=== PATIENT | female | born 1970 | race American Indian/Alaskan Native ===

== ENCOUNTER 2017-06-15 06:15 | Inpatient (IN) | payer BC ==
[2017-06-15 06:29] VITALS: BMI 48.3
--- NOTE | 2017-06-15 07:08 | CP.PCM.HP ---
History of Present Illness - History of Present Illness History of Present Illness: CC: Admission for R knee surgery HPI: 47 y/o female with HTN who presents for R knee replacement. Patient has no c/c otherwise. Denies CP/SOB. Denies f/c/n/v/d; denies dysuria. Patient was seen by PCP on Thursday she states and obtained clearance for surgery at that time. BMP: WNL CBC: WNL EKG: very poor quality EKG, appears to be some nonspec TW changes anterier leads CXR: Mild cardiomegaly, nor CT of R knee: s/p medial comp hemiarthroplasty, stable PCP: Nubia MHx: HTN SHx: R and L knee surgeries in the past Allergies: NKDA Medications: As per med rec Family Hx: Reviewed, no relevant findings Social Hx: Lives with family, no significant EtOH or tobacco Present on Admission - Present on Admission Any Indicators Present on Admission: No Past Patient History - Past Medical History & Family History Past Medical History?: Yes - Past Social History Smoking Status: Never Smoked - CARDIAC Hx Cardiac Disorders: Yes Hx Congestive Heart Failure: No Hx Hypercholesterolemia: No Hx Hypertension: Yes - PULMONARY Hx Respiratory Disorders: No Hx Chronic Obstructive Pulmonary Disease (COPD): No - NEUROLOGICAL Hx Neurological Disorder: No HX Cerebrovascular Accident: No - HEENT Hx HEENT Problems: No - RENAL Hx Chronic Kidney Disease: No Hx Renal Failure: No - ENDOCRINE/METABOLIC Hx Endocrine Disorders: No Hx Diabetes Mellitus Type 1: No Hx Diabetes Mellitus Type 2: No Hx Hypothyroidism: No - HEMATOLOGICAL/ONCOLOGICAL Hx Blood Disorders: No - INTEGUMENTARY Hx Dermatological Problems: No - MUSCULOSKELETAL/RHEUMATOLOGICAL Hx Musculoskeletal Disorders: No Hx Arthritis: No Hx Falls: No Hx Rheumatoid Arthritis: No - GASTROINTESTINAL Hx Gastrointestinal Disorders: No Other/Comment: LACTOSE INTOLERANCE - GENITOURINARY/GYNECOLOGICAL Hx Genitourinary Disorders: No - PSYCHIATRIC Hx Psychophysiologic Disorder: No Hx Emotional Abuse: No Hx Physical Abuse: No - SURGICAL HISTORY Hx Surgeries: Yes Hx Arthroscopy: Yes (BOTH KNEE) Hx Cholecystectomy: Yes (2009) Hx Joint Replacement: Yes (PARTIAL RIGHT KNEE REPLACEMENT 2013) Hx Orthopedic Surgery: Yes (partial right knee-2013,full right knee-2015) Other/Comment: LAPAROSCOPIC GASTRIC BANDING AND REMOVED MAR 2015 - ANESTHESIA Hx Anesthesia: Yes Hx Anesthesia Reactions: No Hx Malignant Hyperthermia: No Has any member of the family had a problem w/ anesthesia?: No Meds Allergies/Adverse Reactions: Allergies Allergy/AdvReac Type Severity Reaction Status Date / Time No Known Allergies Allergy Verified 11/08/15 11:15 Physical Exam - Constitutional Appears: No Acute Distress - Head Exam Head Exam: ATRAUMATIC, NORMOCEPHALIC - Eye Exam Eye Exam: EOMI, PERRL - ENT Exam ENT Exam: Mucous Membranes Moist - Neck Exam Neck exam: Positive for: Full Rom - Respiratory Exam Respiratory Exam: Clear to Auscultation Bilateral, NORMAL BREATHING PATTERN - Cardiovascular Exam Cardiovascular Exam: REGULAR RHYTHM, +S1, +S2 - GI/Abdominal Exam GI & Abdominal Exam: Normal Bowel Sounds, Soft - Extremities Exam Extremities exam: Positive for: full ROM, normal inspection Additional comments: scars b/l knees from prior surgeries - Neurological Exam Neurological exam: Alert, CN II-XII Intact, Oriented x3 - Psychiatric Exam Psychiatric exam: Normal Affect, Normal Mood - Skin Skin Exam: Dry, Warm Results - Vital Signs Recent Vital Signs: Last Vital Signs Temp 97.5 F L 06/15/17 06:50 Pulse 71 06/15/17 06:52 Resp 20 06/15/17 06:50 BP 145/93 H 06/15/17 06:50 Pulse Ox 99 06/15/17 06:50 Assessment & Plan (1) Status post left knee replacement Assessment and Plan: 47 y/o female being admitted for scheduled R knee replacement. 1) Post knee replacement -routine post-op care -pain mgmt 2) HTN -- resume home medications 3) DVT PPx -- start DVT PPx when advised by surgery Status: Acute (2) HTN (hypertension) Status: Acute (3) DVT prophylaxis Status: Acute
[2017-06-15] MEDS ORDERED: Lactated Ringer's 1,000 ML IV ONE ×2 (07:20→19:01)
[2017-06-15] MEDS ORDERED: Absorbable Gelatin Sponge Size 100 ONE (12:50)
[2017-06-15] MEDS ORDERED: ceFAZolin IV 1 gm in Dextrose 2 GM/100 ML BAG IVPB ONE (12:50)
[2017-06-15] MEDS ORDERED: Bacitracin Ointment 30 GM TUBE ONE (12:50)
[2017-06-15] MEDS ORDERED: Bupivacaine 0.5% Inj(30mL) ONE (12:50)
[2017-06-15] MEDS ORDERED: Lidocaine 1% Inj (20ml) ONE (12:50)
[2017-06-15] MEDS ORDERED: SENSORCAINE 0.5% W/EPINEPHRINE 50ML MDV IJ ONE (13:43)
[2017-06-15] MEDS ORDERED: Ropivacaine 0.5% 30ML IV ONE (13:43)
[2017-06-15] MEDS ORDERED: Succinylcholine 200 mg/10 ml Inj IV ONE (13:51)
[2017-06-15] MEDS ORDERED: Rocuronium 10 mg/ml (5 ml) ONE ×3 (13:51→20:36)
[2017-06-15] MEDS ORDERED: Phenylephrine 10 mg/ml Inj ONE (13:51)
[2017-06-15] MEDS ORDERED: Propofol 10 mg/ml Inj (20 ML) ONE (13:51)
[2017-06-15] MEDS ORDERED: Midazolam 2 MG/2 ML VIAL ONE (17:30)
[2017-06-15] MEDS ORDERED: Dexamethasone 4 mg/1 ml ONE (18:54)
[2017-06-15 19:01] LABS: FLUID TYPE SYNOVIAL FLUID
[2017-06-15 19:42] LABS: SYNOVIAL FLUID TOTAL COUNT 100 (0-0)
[2017-06-15] MEDS ORDERED: Neostigmine Methylsulfate 3mg/3ml Syringe IV ONE (22:07)
[2017-06-15] MEDS ORDERED: Neostigmine Methylsulfate 2 MG/2 ML ML IV ONE ×2 (22:07→22:09)
[2017-06-15] MEDS ORDERED: Bacitracin OINT 15GM TOP ONE (22:12)
--- NOTE | 2017-06-15 22:39 | PCM.SURG1 ---
Surgeon's Initial Post Op Note - Surgeon's Notes Surgeon: Eliezer Orchard Manager: RENETTA Ruiz/ 2nd assist Jesus, 1st yr podiatry resident Type of Anesthesia: General Endo, Spinal Anesthesia Administered By: DR Red King Pre-Operative Diagnosis: Painful unicompartmental arthroplasty R knee. transfer arthritis R knee Operative Findings: as above. severe synovitis R knee. posterior capsular contracture. lateral patella contracture Post-Operative Diagnosis: as above Operation Performed: Revision L TKR. arthrotomy/synovectomy. posterior capuslar release. lateral patella release. removal unicompartmental compoinents. computer navigation Specimen/Specimens Removed: cartilage/synovium/bone Estimated Blood Loss: EBL {In ML}: 200 Date of Surgery/Procedure: 06/15/17 Time of Surgery/Procedure: 18:30 (time in room 1727)
[2017-06-15] MEDS: HYDROmorphone 0.5 mg/0.5 ml ISec IVP PRN ×5 (22:45→23:50)
[2017-06-15] MEDS ORDERED: HYDROmorphone 0.5 mg/0.5 ml ISec ONE (22:49)
--- NOTE | 2017-06-15 22:56 | PCM.ANESB3 ---
Femoral Nerve Block - Femoral Nerve Block Date of Procedure: 06/15/17 Anesthesiologist: Fernando Pre-Procedure Diagnosis: Right knee OA Post-Procedure Diagnosis: Same Procedure Performed: Femoral Nerve Block Right - Procedure Femoral Nerve Block: The procedure was explained to the patient that it is for the post-operative pain management. Consent was obtained after a thorough discussion with the patient regarding the benefits and possible complications of local anesthetic block of the femoral nerve at the inguinal crease area. The patient was brought to the operating room and standard monitors were applied. Time-out was held with the circulating nurse to confirm the correct surgery and the appropriate block. Unde general anesthesia, patient was placed in supine position with fully extended lower extremities and the ____right____ groin exposed. The femoral artery was then carefully palpated. The ultrasound transducer was then applied to this area in the transverse plane and the femoral nerve was visualized lateral to the femoral artery and underneath the fascia iliaca. After thorough identification, the inguinal crease area was prepped with Chloraprep. At this point, a #22 gauge Stimuplex 4-inch needle was inserted immediately lateral to the femoral artery pulse at the inguinal crease and advanced perpendicularly. The needle was inserted to the ultrasound transducer in-plane towards the femoral nerve in a [id number] direction. Needle advancement was performed carefully under direct ultrasound visualization. Nerve stimulator was used and twitch of the quadriceps muscle was obtained at current of __0.4___ MA. After negative aspiration, _2____cc of _0.5____% ropivicaine ____was injected and this was followed with _13 cc of ___0.5____ % __ ropivicaine and 15cc 0.25% bupivicaine with epinephrine . Under ultrasound guidance the local anesthetics were observed spreading below fascia iliaca and around the femoral nerve. The needle was removed intact. The patient tolerated the femoral nerve block well with stable vital signs and was prepared for subsequent surgery.
--- NOTE | 2017-06-15 22:59 | PCM.ANESB2 ---
Popliteal Nerve Block - Popliteal Nerve Block Date of Procedure: 06/15/17 Anesthesiologist: Fernando Pre-Procedure Diagnosis: Right knee OA Post-Procedure Diagnosis: Same Procedure Performed: Popliteal Nerve Block Right - Procedure Popliteal Nerve Block: This procedure was explained to the patient that it is for post-operative pain management. Consent was obtained after a thorough discussion with the patient regarding the benefits and possible complications of local anesthetic block of the sciatic nerve at the popliteal level. The patient was brought to the operating room and standard monitors are applied. Time-out was held with the circulating nurse to confirm the correct surgery and the appropriate block. Under general anesthesia, patient's operative leg was gently raised and supported and the groove in between the biceps femoris and vastus lateralis muscles was carefully palpated. The skin approximately 8cm above the popliteal crease was then marked. The ultrasound transducer was then applied to the posterior thigh approximately 8cm above the popliteal crease in the transverse plane and the sciatic nerve before its division was visualized lateral to the popliteal artery and in between the bicep femoris and semimembranosus/ semitendinosus muscles. After identification, the lateral portion of the thigh was prepped withChloraprep. At this point, a # 21 gauge Stimuplex insulated 4 inch needle was inserted into pre-marked area and advanced in a perpendicular direction. The needle was inserted above the ultrasound transducer in-plane towards the sciatic nerve in a [id number] direction. Needle advancement was performed carefully under direct ultrasound visualization. Nerve stimulator was used and dorsiflexion of the __right___ foot was elicited at a current of ___0.4__ MA. After repeated negative aspiration, __2___cc of _0.5____ % _ropivicaine was injected and this was flowed with __13____ cc of __0.5____% __ropivicaine and 15 cc 0.25% bupivicaine with epinephrine . Under ultrasound guidance the local anesthetics were observed surrounding sciatic nerve . The needle was removed intact. The patient tolerated the popliteal nerve block well with stable vital signs and was subsequently prepared for the surgery.
[2017-06-15] MEDS ORDERED: Lactated Ringer's 1,000 ML IV SCH (23:00)
[2017-06-16] MEDS: ceFAZolin 1 GM in Sodium Chloride 0.9% 100 ML IVPB SCH ×2 (01:30→08:47)
[2017-06-16 06:29] LABS: BASO % 0.1 % (0.0-2.0); EOS % 0.1 % (0.0-4.0); HEMATOCRIT 32.6 % (34.0-47.0); LYMPH # 0.7 K/uL (1.0-4.3); LYMPH % 4.4 % (20.0-40.0); MEAN CELL VOLUME 83.6 fl (81.0-99.0); MEAN CORPUSCULAR HEMOGLOBIN 26.9 pg (27.0-31.0); MEAN CORPUSCULAR HGB CONC 32.1 g/dL (33.0-37.0); MEAN PLATELET VOLUME 7.4 fl (7.2-11.7); MONO # 0.7 K/uL (0.0-0.8); MONO % 4.7 % (0.0-10.0); NEUT # 14.5 K/uL (1.8-7.0); NEUT % 90.7 % (50.0-75.0); PLATELET COUNT 329 K/uL (130-400); RED CELL DISTRIBUTION WIDTH 15.1 % (11.5-14.5)
[2017-06-16 06:30] LABS: BLOOD UREA NITROGEN 10 mg/dl (7-17); CALCIUM 7.8 mg/dL (8.4-10.2); CARBON DIOXIDE 24 mmol/L (22-30); CHLORIDE 105 mmol/L (98-107); GFR AFRICAN-AMERICAN > 60; GLUCOSE,RANDOM 136 mg/dL (65-105); POTASSIUM 4.6 MMOL/L (3.6-5.0); SODIUM 141 mmol/l (132-148)
[2017-06-16 07:27] LABS: PARTIAL THROMBOPLASTIN TIME 28.5 Seconds (25.6-37.1)
--- NOTE | 2017-06-16 07:54 | CP.PCM.PN ---
Subjective - Date & Time of Evaluation Date of Evaluation: 06/16/17 Time of Evaluation: 07:53 - Subjective Subjective: patient seen and examined at bedside for her right total knee revision. She is hemodynamically stable in no acute distress. There are no acute events overnight. Patient denies any chest pain or shortness of breath. Pain is well- controlled. Patient to be evaluated by physical therapy today. Objective - Vital Signs/Intake and Output Vital Signs (last 24 hours): Temp Pulse Resp BP Pulse Ox 98.2 F 88 20 94/63 L 98 06/16/17 07:46 06/16/17 07:46 06/16/17 07:46 06/16/17 07:46 06/16/17 07:46 Physical exam: Constitutional- cooperative, awake, alert. Head- NCAT, PERRL Eye- PERRL, normal accommodation ENT- normal exam, MMM. Neck- normal inspection, supple, no JVD Respiratory- CTAB, no wheezes rales rhonchi Cardiovascular- RRR, +S1, +S2 no MRG GI/Abdominal- normal bowel sounds, soft, no mass, no hsm Skin- warm, dry Extremities Exam- normal capillary refill, normal inspectiondressings in place Neurological Exam- alert, awake oriented Psych- normal mood, normal affect Intake and Output: 06/16/17 06/16/17 06:59 18:59 Intake Total 1475 Output Total 325 Balance 1150 - Medications Medications: Current Medications Amlodipine Besylate (Norvasc) 5 mg PO DAILY JERRY Docusate Sodium (Colace) 100 mg PO BID JERRY Enoxaparin Sodium (Lovenox) 40 mg SC DAILY JERRY PRN Reason: Protocol Ferrous Sulfate (Feosol) 325 mg PO BID JERRY Hydralazine HCl (Apresoline) 10 mg IV ONCE PRN PRN Reason: Systolic Blood Pressure Hydromorphone HCl (Dilaudid 0.2 Mg/Ml [employer] Teacher) 0 mg IV PRN PRN; Protocol PRN Reason: Pain, moderate (4-7) Last Admin: 06/16/17 00:06 Dose: 6 mg Cefazolin Sodium 1 gm/ Sodium (Chloride) 100 mls @ 100 mls/hr IVPB Q8 JERRY PRN Reason: Protocol Stop: 06/16/17 09:59 Last Admin: 06/16/17 01:30 Dose: 100 mls/hr Lactated Ringer's (Lactated Ringer's) 1,000 mls @ 100 mls/hr IV .Q10H JERRY Last Admin: 06/15/17 22:45 Dose: 150 mls Ondansetron HCl (Zofran Inj) 4 mg IVP Q8 PRN PRN Reason: Nausea/Vomiting - Labs Labs: 06/16/17 05:10 06/16/17 05:10 PT 12.7 Seconds (9.8-13.1) 06/16/17 05:10 INR 1.1 (0.9-1.2) 06/16/17 05:10 APTT 28.5 Seconds (25.6-37.1) 06/16/17 05:10 Assessment and Plan - Assessment and Plan (Free Text) Plan: 47 y/o female being admitted for scheduled R knee replacement. 1) Post knee replacement patient received Ancef postoperatively incentive spirometer pain control DVT prophylaxis per Orthopedic surgery patient to be evaluated by physical therapy and occupational therapy Orthopedic surgery Dr. Avalos 2) HTN continue amlodipine 3) DVT PPx -- start DVT PPx when advised by surgery
--- NOTE | 2017-06-16 09:28 | CP.PCM.CON ---
History of Present Illness - History of Present Illness History of Present Illness: THE PATIENT IS A 47 YEAR OLD FEMALE WHO HAD A REVISION OF A RIGHT TKR YESTERDAY. SHE HAD BILATERAL KNEE SURGERY IN THE PAST. SHE ALSO HAS A HISTORY OF HYPERTENSION, OA AND SHE IS OVERWEIGHT AN HAD A LAP-BAND PROCEDURE THAT WAS REMOVED. DR SHIN ASKED CARDIOLOGY TO SEE AND FOLLOW THE PATIENT POST-OP FOR HER HYPERTENSION FOR WHICH SHE TAKES AMLODIPINE 5 MGS PO DAILY. SHE DENIES ANY HISTORY OF CAD, CHEST PAIN, DIABETES OR HYPERLIPIDEMIA. Past Patient History - Past Medical History & Family History Past Medical History?: Yes - Past Social History Smoking Status: Never Smoked - CARDIAC Hx Cardiac Disorders: Yes Hx Congestive Heart Failure: No Hx Hypercholesterolemia: No Hx Hypertension: Yes - PULMONARY Hx Respiratory Disorders: No Hx Chronic Obstructive Pulmonary Disease (COPD): No - NEUROLOGICAL Hx Neurological Disorder: No HX Cerebrovascular Accident: No - HEENT Hx HEENT Problems: No - RENAL Hx Chronic Kidney Disease: No Hx Renal Failure: No - ENDOCRINE/METABOLIC Hx Endocrine Disorders: No Hx Diabetes Mellitus Type 1: No Hx Diabetes Mellitus Type 2: No Hx Hypothyroidism: No - HEMATOLOGICAL/ONCOLOGICAL Hx Blood Disorders: No - INTEGUMENTARY Hx Dermatological Problems: No - MUSCULOSKELETAL/RHEUMATOLOGICAL Hx Musculoskeletal Disorders: No Hx Arthritis: No Hx Falls: No Hx Rheumatoid Arthritis: No - GASTROINTESTINAL Hx Gastrointestinal Disorders: No Other/Comment: LACTOSE INTOLERANCE - GENITOURINARY/GYNECOLOGICAL Hx Genitourinary Disorders: No - PSYCHIATRIC Hx Psychophysiologic Disorder: No Hx Emotional Abuse: No Hx Physical Abuse: No - SURGICAL HISTORY Hx Surgeries: Yes Hx Arthroscopy: Yes (BOTH KNEE) Hx Cholecystectomy: Yes (2009) Hx Joint Replacement: Yes (PARTIAL RIGHT KNEE REPLACEMENT 2013) Hx Orthopedic Surgery: Yes (partial right knee-2013,full right knee-2015) Other/Comment: LAPAROSCOPIC GASTRIC BANDING AND REMOVED MAR 2015 - ANESTHESIA Hx Anesthesia: Yes Hx Anesthesia Reactions: No Hx Malignant Hyperthermia: No Has any member of the family had a problem w/ anesthesia?: No Meds Home Medications: Home Medication List Medication Instructions Recorded Confirmed Type Enoxaparin [Lovenox] 40 mg SC DAILY syr 06/17/17 Rx oxyCODONE/Acetaminophen [Percocet 1 tab PO Q4 PRN tab 06/17/17 Rx 5/325 mg Tab] Allergies/Adverse Reactions: Allergies Allergy/AdvReac Type Severity Reaction Status Date / Time No Known Allergies Allergy Verified 11/08/15 11:15 - Medications Medications: Current Medications Amlodipine Besylate (Norvasc) 5 mg PO DAILY [facility] Last Admin: 06/16/17 08:50 Dose: Not Given Docusate Sodium (Colace) 100 mg PO BID [facility] Last Admin: 06/16/17 08:49 Dose: 100 mg Enoxaparin Sodium (Lovenox) 40 mg SC DAILY [facility] PRN Reason: Protocol Ferrous Sulfate (Feosol) 325 mg PO BID [facility] Last Admin: 06/16/17 08:50 Dose: 325 mg Hydralazine HCl (Apresoline) 10 mg IV ONCE PRN PRN Reason: Systolic Blood Pressure Hydromorphone HCl (Dilaudid 0.2 Mg/Ml Derrick Follower) 0 mg IV PRN PRN; Protocol PRN Reason: Pain, moderate (4-7) Last Admin: 06/16/17 00:06 Dose: 6 mg Cefazolin Sodium 1 gm/ Sodium (Chloride) 100 mls @ 100 mls/hr IVPB Q8 [facility] PRN Reason: Protocol Stop: 06/16/17 09:59 Last Admin: 06/16/17 08:47 Dose: 100 mls/hr Lactated Ringer's (Lactated Ringer's) 1,000 mls @ 100 mls/hr IV .Q10H [facility] Last Admin: 06/15/17 22:45 Dose: 150 mls Ondansetron HCl (Zofran Inj) 4 mg IVP Q8 PRN PRN Reason: Nausea/Vomiting Physical Exam - Respiratory Exam Respiratory Exam: Clear to Auscultation Bilateral - Cardiovascular Exam Cardiovascular Exam: REGULAR RHYTHM, +S1, +S2 - Additional Findings Additional findings: PAT EKG NSR CXR MILD CARDIOMEGALY BP WAS HIGH LAST NIGHT AND SHE RECEIVED 10 MGS OF IV HYDRALAZINE Results - Vital Signs Recent Vital Signs: Last Vital Signs Temp 98.2 F 06/16/17 07:46 Pulse 88 06/16/17 07:46 Resp 20 06/16/17 07:46 BP 94/63 L 06/16/17 07:46 Pulse Ox 98 06/16/17 07:46 - Labs Result Diagrams: 06/16/17 05:10 06/16/17 05:10 Labs: Laboratory Results - last 24 hr 06/15/17 06/15/17 06/16/17 08:00 18:55 05:10 WBC 16.0 H RBC 3.90 Hgb 10.5 L Hct 32.6 L MCV 83.6 MCH 26.9 L MCHC 32.1 L RDW 15.1 H Plt Count 329 MPV 7.4 Neut % (Auto) 90.7 H Lymph % (Auto) 4.4 L [place] % (Auto) 4.7 Eos % (Auto) 0.1 Baso % (Auto) 0.1 Neut # 14.5 H Lymph # 0.7 L [place] # 0.7 Eos # 0.0 Baso # 0.0 PT INR APTT Sodium Potassium Chloride Carbon Dioxide Anion Gap BUN Creatinine Est GFR ( Amer) Est GFR (Non-Af Amer) Random Glucose Calcium Fluid Type Synovial fluid Synovial WBC 160.0 H Synovial RBC 20939.0 H Synovial Neutrophils 34.0 H Synovial Lymphocytes 61.0 H Synov Monos/Macrophage 5 H Blood Type A POSITIVE Antibody Screen Negative Crossmatch See Detail BBK History Checked Patient has bt 06/16/17 06/16/17 05:10 05:10 WBC RBC Hgb Hct MCV MCH MCHC RDW Plt Count MPV Neut % (Auto) Lymph % (Auto) [place] % (Auto) Eos % (Auto) Baso % (Auto) Neut # Lymph # [place] # Eos # Baso # PT 12.7 INR 1.1 APTT 28.5 Sodium 141 Potassium 4.6 Chloride 105 Carbon Dioxide 24 Anion Gap 16 BUN 10 Creatinine 0.8 Est GFR ( Amer) > 60 Est GFR (Non-Af Amer) > 60 Random Glucose 136 H Calcium 7.8 L Fluid Type Synovial WBC Synovial RBC Synovial Neutrophils Synovial Lymphocytes Synov Monos/Macrophage Blood Type Antibody Screen Crossmatch BBK History Checked Assessment & Plan - Assessment and Plan (Free Text) Assessment: S/P REVISION OF RIGHT TKR HYPERTENSION OVERWEIGHT Plan: WILL REPEAT EKG PAT EKG WAS OF POOR QUALITY WILL DO ECHO IN AM TO ASSESS HEART SIZE THERE WAS MILD CARDIOMEGALY REPORTED ON CXR MONITOR BP-AMLODIPINE HELD THIS AM THE BLOOD PRESSURE WAS ON THE LOW SIDE PATIENT ON LOVENOX
[2017-06-16] MEDS: Enoxaparin 40 mg Syringe SC SCH (09:36)
--- NOTE | 2017-06-16 11:59 | RAD ---
PROCEDURE: Right Knee Radiographs. HISTORY: s/p Revision R TKR COMPARISON: None. FINDINGS: BONES: PA seen to be status post total knee replacement with hardware in adequate position at the distal femur and proximal tibia. 6 numerous skin sonya are identified anteriorly with emphysematous soft tissue changes identified antral laterally to the right. A surgical drain is also noted within local soft tissues as well. No interval fracture or dislocation appreciable grossly. JOINTS: Normal. No osteoarthritis. JOINT EFFUSION: None. OTHER FINDINGS: None. IMPRESSION: Status post right total knee replacement with limited postop changes noted as discussed above.
[2017-06-16] MEDS ORDERED: HYDROmorphone 1 mg/ml ISec IVP PRN (12:00)
[2017-06-16 12:02] LABS: NEUTROPHIL 91 % (42-75); TOTAL CELLS COUNTED 100
[2017-06-16 12:03] LABS: LARGE PLATELETS PRESENT
--- NOTE | 2017-06-16 14:17 | PQF GENQUE ---
Dr. Brian Diallo, In agreement with BMI:48.4 5ft 1in 256 lb: listed in the EMR? if yes: please add the BMI to your next progress note OR: Disagree OR:Other explanation of clinical finding Cardiology consult: diagnoses include: Overweight This form is a permanent part of the medical record Clarification of your documentation is requested to better reflect the severity of illness and intensity of treatment of your patient. Indicators present [] Specify: [] [] Specify: [] [] Specify: [] [] Specify: [] Location in the medical record that reflects the above clinical findings: [] Treatment Provided: [] PHYSICIAN'S RESPONSE Based on your medical judgment of the clinical indicators outlined above please clarify the following: [] Practitioner response [] If unable to determine, please check the box, sign and date. Present On Admission (POA) Indicator: [] Present at the time of admission [] Not present at the time of admission [] Clinically Undetermined In responding to this query, please exercise your independent professional judgment. The fact that a question is asked does not imply that any particular answer is desired or expected. Thank you for your clarification on this documentation. If you have any questions please call. * Thank you, Kaye King RN ext. #[phone] MTDD
[2017-06-16] MEDS: Oxycodone/Acetaminophen 5/325 mg Tab PO PRN ×2 (16:13→23:19)
[2017-06-17 07:54] VITALS: BP 143/84; RESP 20; TEMP 99.1; O2SAT 94
[2017-06-17] MEDS: Enoxaparin 40 mg Syringe SC SCH (08:07)
[2017-06-17 08:10] VITALS: PULSE 100
[2017-06-17] MEDS: Oxycodone/Acetaminophen 5/325 mg Tab PO PRN (08:16)
--- NOTE | 2017-06-17 09:22 | OP ---
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 PROCEDURES: 1. Revision right total knee replacement. 2. Primary repair and reconstruction of patellar ligament. 3. Posterior capsular release. 4. Lateral patellar retinacular release. 5. Anterior and posterior synovectomy. 6. Computer navigation. SURGEON: Juan Daniel Martins MD. FITTING ROOM SUPERVISOR: Cora Guardado, certified registered nursing personal care assistant. SECOND COLD STORAGE SUPERVISOR: Jesus Godinez, first year podiatry resident. DRAINS: One Hemovac drain. COMPLICATIONS: None. TYPE OF ANESTHESIA: Spinal, general and regional anesthesia. ANESTHESIA ADMINISTERED BY: Rde King MD. ESTIMATED BLOOD LOSS: 200 mL. OPERATIVE INDICATIONS: Ksenia Lyles is a morbidly obese female who underwent excellent unicompartmental replacement approximately 7 years ago of the right knee. The patient has undergone weight gain. With excellent position of the unicompartmental replacement, the patient has developed severe transfer arthritis. Pros, cons, risks, and benefits of surgical approach were discussed. The patient has failed conservative management and is unable to lose weight. She wished the surgery to be accomplished, can no longer withstand the pain. OPERATIVE PROCEDURE: After having obtained informed consent, after having identified the side, site and procedure and critical pause/time-out, after the satisfactory induction of the anesthetic, the patient identified as Ksenia Lyles in the supine position with all bony prominences well padded. The right lower extremity was prepped and free draped in the usual fashion for lower extremity surgery. Tourniquet had been applied, but is not yet inflated. After exsanguinating the limb using a 6-inch Esmarch bandage and the tourniquet, which had been applied was inflated to 350 mmHg. A straight midline approach is made, initial incision is described. The skin incision is extended 3 fingerbreadths proximally and 3 fingerbreadths distally. An ellipse of skin and subcutaneous tissue and muscle is excised from the wound. Medial and lateral flaps are deep, are elevated to expose the retinaculum. There is found to be a lateral patellar retinacular contracture with severe destruction of the patella. Medial arthrotomy is accomplished. The patella was everted. A portion of the patellar ligament is elevated. Dissection is carried around posteromedially to the direct head of the semimembranosus tendon. A portion of the pes is released. The tibia is dislocated anteriorly. Lateral meniscectomy is accomplished. Anterior and posterior cruciate ligaments were excised. The tibia is dislocated anteriorly and the initial osteotomy of the arthroplasty is accomplished on the tibial side. Before this is accomplished, the interface between the femoral component and tibial component is identified. This interface between the metal and the cement is developed using the oscillating saw. The oscillating saw is used to develop the interface between the cement and the metal. Great care was taken not to compromise the bone. The polyethylene is removed. The tibial plate is removed after great care was taken to define the plane between the component and the cement. At this point in time, there is minimal cement, which is removed medially. The same thing is accomplished on the femoral side using the hand-driven oscillating saw. The interface between the metal and the cement is developed. Femoral component is removed. Attention is now turned to the tibia. The anterior support for the OrthAlign accelerometer device is affixed. At this point in time, the varus-valgus is set to 0 degrees, posterior slope to 3.5 degrees, and the posterior slope of the tibial cut is 3.5 degrees. The cut is set to 2 mm below the previous component removal. This having been accomplished using the oscillating saw, the component having been carefully removed, the initial osteotomy of the arthroplasty is accomplished on the tibial side. This having been accomplished, the cut is found to be excellent. Attention is turned to the femur. The navigational pin is placed just above the intercondylar notch. The accelerometer and sensor is placed and affixed to the femoral distal cutting guide. This having been accomplished, the accelerometer is used to align the cut at 0 degrees of varus-valgus and 0.5 degrees of flexion of the femoral component to avoid notching. This having been accomplished, the distal cut is set to 9 mm, the girth of the component, the distal cut is accomplished and found to be acceptable. Minimal bone loss had been achieved in removing the femoral component. This having been accomplished, a 4-in-1 block is placed and is found to be a size 3 femoral component. This is affixed, 4-in-1 block is affixed across the epicondylar axis. Anterior and posterior osteotomies were accomplished. Chamfer cuts were accomplished. The laminar cook chef was placed. Posterior capsule is elevated and released. Lateral meniscectomy is accomplished. Portion of the popliteus tendon is removed. An aggressive posterior capsular release is accomplished. Because of the patient's contractures, a lateral patellar retinacular release had been accomplished to achieve eversion of the patella. At this point in time, attention is turned to the tibia, guidance to rotation of the lateral aspect of the tibial condyle, mid malleolar access, medial third of the tibial tuberosity. The proximal tibia having been prepared, chamfer cuts were placed on the femur. Femoral lugs were reamed. Trialing is accomplished with a 17 mm sphere medial pivot component. The fit is found to be excellent. There is no evidence of instability. Attention is turned to the patella. The patella girth is found to be approximately 28 mm. Freehand patella osteotomy is accomplished for #2 patellar component. The tourniquet is deflated and hemostasis controlled with the Aquamantys. Trialing is accomplished with the #2 tibial component, #3 femoral component, 17 mm sphere insert, and the #2 patella component. Flexion extension gap is found to be excellent in balance. The wound is thoroughly irrigated and at this point in time, the #3 cemented femoral component, #2 cemented tibial tray, 17 mm polyethylene with the screw, the #2 patella. The wound was thoroughly irrigated. Hemostasis is controlled. The tourniquet having been deflated, hemostasis controlled with the Aquamantys. At this point in time, repair of the patellar ligament is accomplished with stabilization. There was not complete avulsion of the patellar ligament but stabilization and primary repair and reconstruction is accomplished using a suture anchor. Closure was with #1 FiberWire, followed by #2 Quill, 2-0 Vicryl, and sonya for skin over an 8-inch suction Hemovac drain. Flexion extension balance, patella balance is excellent. Tyson Marquez compression dressing and knee immobilizer was applied. It should be noted that computer navigation was essential after the completion of this operation and current nursing personal care assistant, Cora Guardado, was essential for the accomplishment of the operative goals in terms of alignment, structuring, and placement of the components. This having been accomplished, Tyson Marquez compression dressing and knee immobilizers was applied. Postoperative x-rays revealed acceptable position of the construct. Juan Daniel Martins MD
--- NOTE | 2017-06-17 11:50 | CARD ---
APPROVED REPORT EKG Measurement Heart [id number] [id number] <Conclusion> Normal sinus rhythm with sinus arrhythmia Normal ECG
--- NOTE | 2017-06-17 12:11 | CARD ---
APPROVED REPORT EKG Measurement Heart [id number] [place] [id number] <Conclusion> Normal sinus rhythm Normal ECG
--- NOTE | 2017-06-17 14:31 | CP.PCM.PN ---
Subjective - Date & Time of Evaluation Date of Evaluation: 06/17/17 Time of Evaluation: 14:00 - Subjective Subjective: NO CHEST PAIN OR SOB Objective - Vital Signs/Intake and Output Vital Signs (last 24 hours): Temp Pulse Resp BP Pulse Ox 99.1 F 100 H 20 143/84 94 L 06/17/17 07:53 06/17/17 08:08 06/17/17 07:53 06/17/17 08:08 06/17/17 07:53 - Medications Medications: Current Medications Amlodipine Besylate (Norvasc) 5 mg PO DAILY [facility] Last Admin: 06/17/17 08:08 Dose: 5 mg Docusate Sodium (Colace) 100 mg PO BID [facility] Last Admin: 06/17/17 08:07 Dose: 100 mg Enoxaparin Sodium (Lovenox) 40 mg SC DAILY [facility] PRN Reason: Protocol Last Admin: 06/17/17 08:07 Dose: 40 mg Ferrous Sulfate (Feosol) 325 mg PO BID [facility] Last Admin: 06/17/17 08:08 Dose: 325 mg Hydralazine HCl (Apresoline) 10 mg IV ONCE PRN PRN Reason: Systolic Blood Pressure Hydromorphone HCl (Dilaudid) 1 mg IVP Q4 PRN PRN Reason: Pain, severe (8-10) Last Admin: 06/17/17 06:26 Dose: 1 mg Lactated Ringer's (Lactated Ringer's) 1,000 mls @ 100 mls/hr IV .Q10H [facility] Last Admin: 06/15/17 22:45 Dose: 150 mls Ondansetron HCl (Zofran Inj) 4 mg IVP Q8 PRN PRN Reason: Nausea/Vomiting Oxycodone/Acetaminophen (Percocet 5/325 Mg Tab) 1 tab PO Q4 PRN PRN Reason: Pain, moderate (4-7) Stop: 06/19/17 12:02 Last Admin: 06/17/17 08:16 Dose: 1 tab - Labs Labs: 06/16/17 05:10 06/16/17 05:10 PT 12.7 Seconds (9.8-13.1) 06/16/17 05:10 INR 1.1 (0.9-1.2) 06/16/17 05:10 APTT 28.5 Seconds (25.6-37.1) 06/16/17 05:10 - Respiratory Exam Respiratory Exam: Clear to Ausculation Bilateral - Cardiovascular Exam Cardiovascular Exam: REGULAR RHYTHM, +S1, +S2 - Additional Findings Additional findings: S/P REVISION OR RIGHT TKR HYPERTENSION Assessment and Plan - Assessment and Plan (Free Text) Plan: CONTINUE AMLODIPINE AND LOVENOX THE PATIENT CHANGED HER MIND ON AN ECHOCARDIOGRAM-SHE WANTS TO HAVE HER LMD DO THE TEST AN OUT PATIENT FOR POSSIBLE DISCHARGE TO REHAB TODAY
--- NOTE | 2017-06-17 15:57 | CP.PCM.DIS ---
Provider - Provider Date of Admission: 06/15/17 23:46 Attending physician: Deric Mahoney Primary care physician: Juan Daniel Martins III, MD Consults: ortho consult anesthesis cardiology consult Time Spent in preparation of Discharge (in minutes): 10 Hospital Course - Lab Results Lab Results: Micro Results 06/15/17 19:00 Knee - Right Gram Stain - Final 06/15/17 19:00 Knee - Right Anaerobic Culture - Final NO ANAEROBES ISOLATED. 06/15/17 19:00 Knee - Right Wound Culture - Preliminary No growth. 06/15/17 19:00 Knee - Right Anaerobic Culture - Final NO ANAEROBES ISOLATED. 06/15/17 19:00 Knee - Right Gram Stain - Final 06/15/17 19:00 Knee - Right Wound Culture - Preliminary No growth. 06/15/17 19:00 Knee - Right Gram Stain - Final 06/15/17 19:00 Knee - Right Wound Culture - Preliminary No growth. 06/15/17 19:00 Knee - Right Gram Stain - Final 06/15/17 19:00 Knee - Right Wound Culture - Preliminary No growth. 06/15/17 19:00 Knee - Right Gram Stain - Final 06/15/17 19:00 Knee - Right Wound Culture - Preliminary No growth. 06/15/17 19:00 Knee - Right Gram Stain - Final 06/15/17 19:00 Knee - Right Wound Culture - Preliminary No growth. 06/15/17 19:00 Knee - Right Gram Stain - Final 06/15/17 19:00 Knee - Right Wound Culture - Preliminary No growth. 06/15/17 19:00 Knee - Right Gram Stain - Final 06/15/17 19:00 Knee - Right Wound Culture - Preliminary No growth. 06/15/17 19:00 Synovial Fluid Gram Stain - Final 06/15/17 19:00 Synovial Fluid Body Fluid Culture - Preliminary NO GROWTH AFTER 2 DAYS 06/15/17 19:00 Other: Please Indicate Mycobacterial Culture - Preliminary Most Recent Lab Values WBC 16.0 K/uL (4.8-10.8) H 06/16/17 05:10 RBC 3.90 Mil/uL (3.80-5.20) 06/16/17 05:10 Hgb 10.5 g/dL (12.0-16.0) L 06/16/17 05:10 Hct 32.6 % (34.0-47.0) L 06/16/17 05:10 MCV 83.6 fl (81.0-99.0) 06/16/17 05:10 MCH 26.9 pg (27.0-31.0) L 06/16/17 05:10 MCHC 32.1 g/dL (33.0-37.0) L 06/16/17 05:10 RDW 15.1 % (11.5-14.5) H 06/16/17 05:10 Plt Count 329 K/uL (130-400) 06/16/17 05:10 MPV 7.4 fl (7.2-11.7) 06/16/17 05:10 Neut % (Auto) 90.7 % (50.0-75.0) H 06/16/17 05:10 Lymph % (Auto) 4.4 % (20.0-40.0) L 06/16/17 05:10 Emmons % (Auto) 4.7 % (0.0-10.0) 06/16/17 05:10 Eos % (Auto) 0.1 % (0.0-4.0) 06/16/17 05:10 Baso % (Auto) 0.1 % (0.0-2.0) 06/16/17 05:10 Neut # 14.5 K/uL (1.8-7.0) H 06/16/17 05:10 Lymph # 0.7 K/uL (1.0-4.3) L 06/16/17 05:10 Emmons # 0.7 K/uL (0.0-0.8) 06/16/17 05:10 Eos # 0.0 K/uL (0.0-0.7) 06/16/17 05:10 Baso # 0.0 K/uL (0.0-0.2) 06/16/17 05:10 Neutrophils % (Manual) 91 % (42-75) H 06/16/17 05:10 Lymphocytes % (Manual) 5 % (20-50) L 06/16/17 05:10 Monocytes % (Manual) 4 % (0-10) 06/16/17 05:10 Toxic Granulation Present 06/16/17 05:10 Platelet Estimate Normal (NORMAL) 06/16/17 05:10 Large Platelets Present 06/16/17 05:10 Hypochromasia (manual) Slight 06/16/17 05:10 Anisocytosis (manual) Slight 06/16/17 05:10 PT 12.7 Seconds (9.8-13.1) 06/16/17 05:10 INR 1.1 (0.9-1.2) 06/16/17 05:10 APTT 28.5 Seconds (25.6-37.1) 06/16/17 05:10 Sodium 141 mmol/l (132-148) 06/16/17 05:10 Potassium 4.6 MMOL/L (3.6-5.0) 06/16/17 05:10 Chloride 105 mmol/L (98-107) 06/16/17 05:10 Carbon Dioxide 24 mmol/L (22-30) 06/16/17 05:10 Anion Gap 16 (10-20) 06/16/17 05:10 BUN 10 mg/dl (7-17) 06/16/17 05:10 Creatinine 0.8 mg/dL (0.7-1.2) 06/16/17 05:10 Est GFR ( Amer) > 60 06/16/17 05:10 Est GFR (Non-Af Amer) > 60 06/16/17 05:10 Random Glucose 136 mg/dL (65-105) H 06/16/17 05:10 Calcium 7.8 mg/dL (8.4-10.2) L 06/16/17 05:10 Fluid Type Synovial fluid 06/15/17 18:55 Synovial WBC 160.0 /mm3 (0.0-150.0) H 06/15/17 18:55 Synovial RBC 74982.0 /mm3 (0.0-0.0) H 06/15/17 18:55 Synovial Neutrophils 34.0 % (0-0) H 06/15/17 18:55 Synovial Lymphocytes 61.0 % (0-0) H 06/15/17 18:55 Synov Monos/Macrophage 5 % (0-0) H 06/15/17 18:55 Blood Type A POSITIVE 06/15/17 08:00 Antibody Screen Negative 06/15/17 08:00 Crossmatch See Detail 06/15/17 08:00 BBK History Checked Patient has bt 06/15/17 08:00 - Hospital Course Hospital Course: 47 y/o female admitted for scheduled revision of R total knee replacement. She underwent revision of right TKR by Dr. Martins with no complications. Post op doing well, pain is controlled. Will d/c patient to [facility] for continuation of physical therapy. 1.Revision of right TKR post op doing well , pain is controlled patient received Ancef postoperatively prophylactically continue pain control DVT prophylaxis with lovenox will d/c to [facility] today for continuation of physical therapy 2. HTN controlled continue amlodipine 3. Acute blood loss anemia Hgb 10 .5 4.Leukocytosis WBC 16 K Most likely reactive patient received Ancef 3 doses prophylactically no need for further antibiotics 5. Obesity BMI 48 6.DVT PPx lovenox Discharge Exam - Head Exam Head Exam: ATRAUMATIC, NORMOCEPHALIC - Eye Exam Eye Exam: EOMI, PERRL Pupil Exam: NORMAL ACCOMODATION - ENT Exam ENT Exam: Mucous Membranes Moist, Normal Exam - Neck Exam Neck exam: Full Rom, Normal Inspection - Respiratory Exam Respiratory Exam: Clear to PA & Lateral, NORMAL BREATHING PATTERN. absent: Rales, Rhonchi, Wheezes - Cardiovascular Exam Cardiovascular Exam: REGULAR RHYTHM, RRR, +S1, +S2. absent: JVD - GI/Abdominal Exam GI & Abdominal Exam: Normal Bowel Sounds, Soft. absent: Distended, Guarding, Rebound, Tenderness - Rectal Exam Rectal Exam: Deferred - Extremities Exam Extremities exam: normal capillary refill, normal inspection, pedal pulses present Additional comments: dressing to right knee - Back Exam Back exam: NORMAL INSPECTION - Neurological Exam Neurological exam: Alert, CN II-XII Intact, Oriented x3 - Psychiatric Exam Psychiatric exam: Normal Affect, Normal Mood - Skin Skin Exam: Dry, Normal Color, Warm Discharge Plan - Follow Up Plan Condition: GOOD Disposition: TRANSF TO SNF Patient education suggested?: Yes Instructions: Obesity (DC), Knee Replacement (DC) Referrals: Juan Daniel Martins III, MD [Primary Care Provider] -
== END 2017-06-17 16:38 | DRG 467 ==
LOC: H.OPSURG 06:15 → H.MEDSURG1 23:46
PROVIDERS: ADMIT Internal Medicine; ATTEND Internal Medicine
PROC: 0SBC0ZZ Excision of Right Knee Joint, Open Approach (ICD-10-PCS; 2017-06-15)
PROC: 3E0T3BZ Introduction of Anesthetic Agent into Peripheral Nerves and Plexi, Percutaneous Approach (ICD-10-PCS; 2017-06-15)
PROC: 8E0YXBZ Computer Assisted Procedure of Lower Extremity (ICD-10-PCS; 2017-06-15)
PROC: 3E0T3BZ Introduction of Anesthetic Agent into Peripheral Nerves and Plexi, Percutaneous Approach (ICD-10-PCS; principal; 2017-06-15 13:15)
PROC: 0SPC0JZ Removal of Synthetic Substitute from Right Knee Joint, Open Approach (ICD-10-PCS; 2017-06-15 13:15)
PROC: 0SRC0J9 Replacement of Right Knee Joint with Synthetic Substitute, Cemented, Open Approach (ICD-10-PCS; 2017-06-15 13:15)
DX: T84.84XA Pain due to internal orthopedic prosthetic devices, implants and grafts, initial encounter (principal); D62 Acute posthemorrhagic anemia; I10 Essential (primary) hypertension; Z68.42 Body mass index [BMI] 45.0-49.9, adult; M17.11 Unilateral primary osteoarthritis, right knee; Z96.651 Presence of right artificial knee joint; Y79.2 Prosthetic and other implants, materials and accessory orthopedic devices associated with adverse incidents; Y83.8 Other surgical procedures as the cause of abnormal reaction of the patient, or of later complication, without mention of misadventure at the time of the procedure; M65.9 Synovitis and tenosynovitis, unspecified; M24.561 Contracture, right knee; E66.9 Obesity, unspecified; T84.89XA Other specified complication of internal orthopedic prosthetic devices, implants and grafts, initial encounter; D72.829 Elevated white blood cell count, unspecified

== ENCOUNTER 2017-10-05 06:14 | Day surgery (SDC) | payer BC ==
[2017-09-30 10:25] VITALS: BMI 45.7
[2017-10-05] MEDS ORDERED: Propofol 10 mg/ml Inj (20 ML) ONE (07:17)
[2017-10-05] MEDS ORDERED: Lidocaine 4% (Laryng-O-Jet) Kit MM ONE (07:17)
[2017-10-05] MEDS ORDERED: Rocuronium 10 mg/ml (5 ml) ONE ×2 (07:17→08:51)
[2017-10-05] MEDS ORDERED: Succinylcholine 200 mg/10 ml Inj IV ONE (07:17)
[2017-10-05] MEDS ORDERED: Phenylephrine 10 mg/ml Inj ONE (07:20)
[2017-10-05] MEDS ORDERED: Bupivacaine HCl/Epi 0.5% 1:20000 30 ML SOL IJ ONE (07:36)
[2017-10-05] MEDS ORDERED: Lidocaine 1% w Epi 1:100,000 Inj ONE (07:41)
[2017-10-05] MEDS ORDERED: Absorbable Gelatin Sponge Size 100 ONE (07:42)
[2017-10-05] MEDS ORDERED: EPINEPHrine 1 mg/ml (1:1000) Inj ONE (07:42)
[2017-10-05] MEDS ORDERED: Bacitracin Ointment 30 GM TUBE ONE (07:42)
[2017-10-05] MEDS ORDERED: Lidocaine 1% Inj (20ml) ONE (07:42)
[2017-10-05] MEDS ORDERED: Thrombin Topical 5,000 Int Units Spray Kit ONE (07:43)
[2017-10-05] MEDS ORDERED: Lactated Ringer's 1,000 ML IV ONE ×2 (07:50→10:00)
[2017-10-05] MEDS ORDERED: Midazolam 2 MG/2 ML VIAL ONE (07:53)
[2017-10-05] MEDS ORDERED: Dexamethasone 4 mg/1 ml ONE (08:29)
[2017-10-05] MEDS ORDERED: MethylPREDNISolone Depo 40 mg/ml Inj ONE (09:55)
[2017-10-05] MEDS ORDERED: HYDROmorphone 0.5 mg/0.5 ml ISec IVP PRN (10:28)
[2017-10-05] MEDS ORDERED: Lactated Ringer's 1,000 ML IV SCH (10:30)
--- NOTE | 2017-10-05 10:33 | PCM.ANESB4 ---
Infraclavicular Block - Femoral Nerve Block Date of Procedure: 10/05/17 Anesthesiologist: Fernando Pre-Procedure Diagnosis: Internal derangement right wrist Post-Procedure Diagnosis: same Procedure Performed: Brachial Plexus at the Infraclavicular area Right - Procedure Infraclavicular Block: The procedure was explained to the patient that it is for the post-operative pain management. Consent was obtained after a thorough discussion with the patient regarding the benefits and possible complications of local anesthetic block of the brachial plexus at the infraclavicular area. The patient was brought to the operating room and standard monitors were applied. Time-out was held with the circulating nurse to confirm the correct surgery and the appropriate block. Under general anesthesia, patient's head was gently rotated away from the operative __right shoulder and the area medial to the coracoid process and inferior to the clavicle was carefully palpated. The ultrasound transducer was then applied to the skin in the transverse plane and the brachial plexus was visualized surrounding the axillary artery and deep to the pectoralis major and minor muscles. After thorough identification, this area was prepped with Chloraprep. At this point, a #21 gauge Stimuplex 4-inch needle was inserted cephalad to the ultrasound transducer and inferior to the clavicle in-plane towards the posterior aspect of the axillary artery. Needle advancement was performed carefully under ultrasound visualization. Nerve stimulator was used and twitch of the affected extremity including fingers, hand, wrist and elbow was obtained at current of _0.5____MA. After repeated negative aspiration, __2___cc of __0.5_ __% ___bupivicaine with 1:200,000 epinephrine was injected and this was followed with __28____ cc of __0.5 % __bupivicaine with 1:200,000 epinephrine . Under ultrasound guidance the local anesthetics were observed surrounding the cords of the brachial plexus. The needle was removed intact. The patient had stable vital signs. The patient tolerated the infraclavicular block of the brachial plexus well with stable vital signs was prepared for subsequent surgery.
[2017-10-05 10:44] VITALS: RESP 18
[2017-10-05 15:16] VITALS: BP 123/76; PULSE 82; TEMP 97.5; O2SAT 99
--- NOTE | 2017-10-05 18:41 | PCM.SURG1 ---
Surgeon's Initial Post Op Note - Surgeon's Notes Surgeon: Eliezer Biologist Aide: RENETTA Ruiz Type of Anesthesia: General Endo Anesthesia Administered By: DR Del Valle Pre-Operative Diagnosis: Tear TFCC. synvoitis ulno carpal joint Operative Findings: as above Post-Operative Diagnosis: as above Operation Performed: arthroscopic debridemnt ulnar triangular fibrocartilage complex. synovitis ulno carpal joint Specimen/Specimens Removed: synvium/cartilage Estimated Blood Loss: EBL {In ML}: 2 Blood Products Given: N/A Drains Used: No Drains Post-Op Condition: Good Date of Surgery/Procedure: 10/05/17 Time of Surgery/Procedure: 09:00 (time in room 750/anaetsheisa indcution time 750)
--- NOTE | 2017-10-07 19:09 | OP ---
PROCEDURE DATE: 10/05/2017 LOCATION: [facility]. PREOPERATIVE DIAGNOSES: 1. Posttraumatic derangement of the right wrist. 2. Tear of the triangular fibrocartilage complex, right wrist. 3. Synovitis of ulnocarpal joint. POSTOPERATIVE DIAGNOSES: 1. Tear of triangular fibrocartilage complex right wrist. 2. Synovitis of ulnocarpal joint. 3. No evidence of instability of the distal ulnocarpal joint. PROCEDURE: 1. Surgical arthroscopy of right wrist, partial excision of triangular fibrocartilage complex. 2. Surgical arthroscopy and partial synovectomy ulnocarpal joint. 3. Evaluation and manipulation of the wrist under anesthesia. SURGEON: Juan Daniel Martins MD RUG INSPECTOR HELPER: Cora Guardado, certified registered nursing first sampler. TYPE OF ANESTHESIA: General endotracheal anesthesia. ANESTHESIA ADMINISTERED BY: Dr. King. COMPLICATIONS: No complications. DRAINS: No drains. 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 The patient presents with persistent pain in the area of the ulnocarpal joint of the right wrist. The patient has failed conservative management consisting of intraarticular injection, activity modification and therapy. Pros, cons, risks and benefits of surgical approach were discussed. The possibility of mechanical failure, infection, thromboembolic disease, secondary or tertiary surgery was discussed. The possibility of later open reconstructive surgery embolization is discussed. OPERATIVE PROCEDURE: After having obtained informed consent in the above fashion, after having identified side, site, and procedure and critical pause/time-out, after the satisfactory induction of the anesthetic, the patient identified as Ksenia Lyles in the supine position with all bony prominences well padded, the upper extremity was prepped and free draped in usual fashion for upper extremity surgery. The tourniquet had been applied, but was not yet inflated. The wrist positioner was employed and distraction of the wrist was accomplished. The fingers were placed in a wrist distractor, countertraction was placed with the Acumed wrist traction device. Prior to application of the wrist distractor, the upper extremity was exsanguinated using 6-inch Esmarch bandage. The tourniquet, which had been applied, was inflated to 350 mmHg. The wrist joint was insufflated with approximately 5 mL of 1% lidocaine without epinephrine was addressed. A dorsal approach to the ulnocarpal ligament was accomplished. We did an incision using #11 blade followed by spreading, followed by introduction of blunt trocar. The 2.7 mm arthroscope was introduced and the ulnocarpal joint was adequately visualized. Please refer to the video photographs. There was found to be tear of the ulnar triangular fibrocartilage complex. Triangulation was accomplished using a spinal needle followed by #11 blade, followed by spreading. A third portal was placed again taking great care to avoid any injury to the nerve structures. was accomplished again using a #18 gauge spinal needle followed by #11 blade, followed by spreading with the arthroscope the ulnar triangular fibrocartilage complex was identified. The wrist distractor was employed. Hemostasis was placed to avoid any further damage as necessary. The arthroscopic shaver was employed and a careful debridement of the triangular fibrocartilage complex was used using a combination of the arthroscopic shaver and the 3.4 mm Dyonics suction punch. With the arthroscope laterally and ulnarly, the partial synovectomy was accomplished using arthroscopic shaver. The arthroscope was transferred again now dorsally and with the shaver in mid centrally using a combination of the arthroscopic shaver and the 3.4 mm Dyonics suction punch, the remainder of the triangular fibrocartilage complex was debrided. Chondroplasty was accomplished as well. The inner free edge of the caudal was smoothed using the arthroscopic wand at a very low thermal energy. The chondral damage was debrided using the 3.4 mm Dyonics suction punch. The wound was fairly irrigated. It should be noted that the prior to the arthroscopic portion and prior to placing the wrist distractor, the ulnocarpal joint is evaluated. There was found to be no excessive balance. This was found to be no evidence of gross instability. The wound was fairly irrigated. A final test with the shaving to complete the synovectomy. Bleeding points were controlled with the wand. There was found to be no damage to any tendinous structures, ligamentous structures or neural structures. The wound was thoroughly irrigated. Closure was in layers with interrupted Vicryl on top of the wound. Tyson Marquez compression dressing was applied. Juan Daniel Martins MD [facility] # [id number]
== END 2017-10-05 15:10 | disposition home or self-care (01) ==
LOC: H.OPSURG 06:14
PROVIDERS: ATTEND Orthopaedic Surgery
DX: M25.531 Pain in right wrist (principal); G47.33 Obstructive sleep apnea (adult) (pediatric); E66.9 Obesity, unspecified; I10 Essential (primary) hypertension; M65.88 Other synovitis and tenosynovitis, other site; M24.631 Ankylosis, right wrist
CPT/HCPCS: 29846; 88305; J0171; J0330; J0690; J1030; J1100; J1885; J2001; J2250; J2370; J2405; J2704; J2765; J3010; J7030; J7120